=== PATIENT | male | born 1950 | race Caucasian/White ===

== ENCOUNTER 2023-05-11 21:29 | Outpatient (CLI) | payer MEDICARE, OTHER | END 2023-05-11 23:59 | disposition critical access hospital (66) | LOC: EMS 21:29 | DX: R55 Syncope and collapse (principal); H53.19 Other subjective visual disturbances | CPT/HCPCS: A0425; A0427 ==

== ENCOUNTER 2023-05-11 21:45 | Emergency (ER) | payer MEDICARE, OTHER ==
[2023-05-11] MEDS ORDERED: SODIUM CHLORIDE 0.9% 1,000 ML IV STA (21:51)
[2023-05-11 22:07] LABS: BASOPHILS % (AUTO) 0.4 %; EOSINOPHILS # (AUTO) 0.1 10^3/uL (0.0-0.7); EOSINOPHILS % (AUTO) 0.9 %; LYMPHOCYTES # (AUTO) 2.1 10^3/uL (1.5-3.5); LYMPHOCYTES % (AUTO) 38.5 %; MEAN CORPUSCULAR HEMOGLOBIN 32.5 pg (27.0-31.0); MEAN CORPUSCULAR HGB CONC 33.3 g/dL (32.0-36.0); MEAN CORPUSCULAR VOLUME 97.4 fL (80.0-94.0); MEAN PLATELET VOLUME 9.4 fL (7.4-11.4); MONOCYTES # (AUTO) 0.4 10^3/uL (0.0-1.0); NEUTROPHILS # (AUTO) 2.9 10^3/uL (1.5-6.6); PLT - PLATELET COUNT 190 10^3/uL (130-450); RED BLOOD COUNT 4.31 10^6/uL (4.70-6.10); RED CELL DISTRIBUTION WIDTH 12.9 % (12.0-15.0); WHITE BLOOD COUNT 5.5 x10^3/uL (4.8-10.8)
--- NOTE | 2023-05-11 22:12 | ED Physician Documentation ---
History of Present Illness - Stated complaint Stated Complaint: SYNCOPE X 3 - Chief complaint Chief Complaint: Neuro - History obtained from History obtained from: Patient, Family (), EMS - Additonal information Additional information: 72yM presents to the ED with syncope X 3 tonight. patient drank red wine and used marijuana tonight and was in kitchen with when he syncopized for 5 secs. she called ems and on scene they had him in a chair and took BP which was 144/100 sitting. patient then fainted twice briefly again while in the chair. o2 sat RA was 92%, improving to 97% on 2L NC en route. patient denies feeling ill earlier in the day. asymptomatic at present and states it is not unusual for him to drink and use marijuana though this is more than he usually does. denies cp, soa, nausea, diaphoresis. PD PAST MEDICAL HISTORY - Allergies Allergies/Adverse Reactions: Allergies Allergy/AdvReac Type Severity Reaction Status Date / Time No Known Drug Allergies Allergy Verified 05/11/23 21:56 PD ED PE NORMAL - Vitals Vital signs reviewed: Yes - General General: Alert and oriented X 3, No acute distress, Well developed/nourished - HEENT HEENT: Atraumatic, PERRL, EOMI, Moist mucous membranes - Neck Neck: Supple, no meningeal sign - Cardiac Cardiac: RRR - Respiratory Respiratory: No respiratory distress, Clear bilaterally - Derm Derm: Normal color, Warm and dry - Neuro Neuro: Alert and oriented X 3, 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 Relevant findings are: Rate: Rate (enter#) (65) Rhythm: NSR [place]: Normal Intervals: Prolonged MA (223), 1st degree AVB Ischemia: Normal ST segments Other comments: Other comments (pre-hospital ectopic atrial beat with ems ekg) - Labs Labs: Laboratory Tests 05/11/23 05/11/23 22:02 22:02 WBC 5.5 RBC 4.31 L Hgb 14.0 Hct 42.0 MCV 97.4 H MCH 32.5 H MCHC 33.3 RDW 12.9 Plt Count 190 MPV 9.4 Neut # (Auto) 2.9 Lymph # (Auto) 2.1 [place] # (Auto) 0.4 Eos # (Auto) 0.1 Baso # (Auto) 0.0 Absolute Nucleated RBC 0.00 Nucleated RBC % 0.0 Sodium 140 Potassium 4.5 Chloride 107 Carbon Dioxide 23 Anion Gap 10.0 BUN 25 H Creatinine 1.4 H Estimated GFR (MDRD) 50 L Glucose 120 H Calcium 9.1 Magnesium 1.9 Total Bilirubin 0.7 AST 18 ALT 14 Alkaline Phosphatase 49 Troponin I High Sens 3.6 Total Protein 5.8 L Albumin 4.0 Globulin 1.8 L Albumin/Globulin Ratio 2.2 Lipase 15 Ethyl Alcohol 98.3 PD Medical Decision Making - ED course ED course: 72yM presents with syncope X 3 after drinking alcohol and using MJ tonight. plan to obtain cbc, abdominal panel, troponin, alcohol level cxr, ekg, provide ivf, and maintain on laboratory monitor. alcohol level moderately elevated. patient is pleasant and conversant, does not appear intoxicated. d/w patient and with his at bedside regarding normal ekg, cxr, and lab findings with exception of cre 1.4, which may be mediated by dehydration or methotrexate toxicity. (Patient takes this for his RA). advised outpatient f/u with pcp for this and for referral to cardiology for echocardiogram and potential further testing. return precautions given. Departure - Departure Disposition: 01 Home, Self Care Clinical Impression: Syncope Condition: Stable Instructions: ED Fainting Unkn Cause Follow-Up: Km Chan MD [Physician No Access] - Comments: You were seen in the emergency department for medical evaluation after 3 fainting episodes. Your vital signs, EKG, and chest x-ray were all normal. We did blood tests for your organ function that showed a normal blood heart function test (troponin), but your kidneys are showing some slight injury (creatinine 1.4). Please follow-up with your primary care provider in regards to this. Methotrexate can cause kidney dysfunction or renal failure in some people so this should be considered. It is possible also that you are simply dehydrated and therefore I recommend drinking 8-10 servings of water daily and avoiding alcohol and marijuana intake. You may need referral to cardiology as well for echocardiogram and potentially for additional testing. Please follow-up with your primary care provider for this and return to the emergency department if you have any new or worsening symptoms or other concerns. Forms: PCP List
[2023-05-11 22:24] LABS: CREATININE 1.4 mg/dL (0.6-1.3); POTASSIUM 4.5 mmol/L (3.5-4.5)
[2023-05-11 22:25] LABS: ALBUMIN/GLOBULIN RATIO 2.2 (1.0-2.2); BILIRUBIN,TOTAL 0.7 mg/dL (0.2-1.0); CALCIUM 9.1 mg/dL (8.5-10.3); ETOH - ETHANOL 98.3 mg/dL; MAGNESIUM 1.9 mg/dL (1.7-2.3); TOTAL PROTEIN 5.8 g/dL (6.4-8.9)
[2023-05-11 22:29] LABS: TROPONIN I HIGH SENSITIVITY 3.6 ng/L (2.3-19.7)
--- NOTE | 2023-05-11 22:41 | XRAY Report ---
PROCEDURE: Chest 1 View X-Ray INDICATIONS: Chest Pain TECHNIQUE: One view of the chest was acquired. COMPARISON: None. FINDINGS: Surgical changes and devices: None. Lungs and pleura: No pleural effusions or pneumothorax. Lungs are clear. Mediastinum: Mediastinal contours appear normal. Heart size is normal. Bones and chest wall: No suspicious bony lesions. Overlying soft tissues appear unremarkable. IMPRESSION: No acute cardiopulmonary process. Reviewed by: Jovanni Devine MD on 05/11/2023 10:40 PM PDT Approved by: Jovanni Devine MD on 05/11/2023 10:40 PM PDT Station ID: [id number]
[2023-05-11 23:39] VITALS: BP 115/79; O2SAT 99
== END 2023-05-11 23:39 | disposition home or self-care (01) ==
LOC: ED 21:45
DX: R55 Syncope and collapse (principal)
CPT/HCPCS: 36415; 71045; 80053; 83690; 83735; 84484; 85025; 93005; 99283; 99284; G0480; 80320